=== PATIENT | male | born 1950 | race Caucasian/White ===

== ENCOUNTER 2024-06-13 12:44 | Emergency (ER) | payer OTHER, SELFPAY ==
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
[2024-06-13 13:00] VITALS: BP 159/76; BP 161/81; PULSE 67; PULSE 72; RESP 18; TEMP 37.1; O2SAT 95; BMI 37.3
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
[2024-06-13 14:01] VITALS: BP 151/76; PULSE 67; O2SAT 95
--- NOTE | 2024-06-13 14:01 | PC.NURSE ---
walked pt to bathroom.
[2024-06-13 14:25] VITALS: BP 151/76; PULSE 72; RESP 18; TEMP 36.9; O2SAT 95
== END 2024-06-13 14:43 | disposition home or self-care (01) ==
PROVIDERS: Emergency Provider Emergency Medicine
DX: S70.02XA Contusion of left hip, initial encounter (principal); S40.012A Contusion of left shoulder, initial encounter; V49.40XA Driver injured in collision with unspecified motor vehicles in traffic accident, initial encounter
CPT/HCPCS: 99285; 70450; 72125; 73030; 73060; 73502; 73552